=== PATIENT | female | born 1985 | race Caucasian/White ===

== ENCOUNTER 2021-02-17 21:27 | Emergency (ER) | payer BC, OTHER ==
[2021-02-17 22:25] LABS: HEMOGLOBIN 15.5 gm/dl (12.3-15.3); RED BLOOD COUNT 4.81 M/UL (4.00-5.10); WHITE BLOOD COUNT 10.7 K/UL (4.5-11.0)
[2021-02-17 22:31] LABS: BUN/CREATININE RATIO 12 (0-10)
== END 2021-02-18 13:15 | disposition short-term general hospital (02) ==
LOC: ER1 21:27
PROVIDERS: Emergency Medicine
DX: T42.4X2A Poisoning by benzodiazepines, intentional self-harm, initial encounter (principal); F32.9 Major depressive disorder, single episode, unspecified; J45.909 Unspecified asthma, uncomplicated; Z20.822 Contact with and (suspected) exposure to COVID-19; F17.210 Nicotine dependence, cigarettes, uncomplicated; Z90.710 Acquired absence of both cervix and uterus
CPT/HCPCS: 71045; 80053; 80307; 81001; 83690; 83735; 85025; 93005; 96374; 99285; G0480; J1630; J2060; J7120; U0002

== ENCOUNTER → 2021-08-20 | Outpatient (CLI) | payer OTHER | LOC: EROP 12:01 | DX: Z20.822 Contact with and (suspected) exposure to COVID-19 (principal) | CPT/HCPCS: U0002 ==